=== PATIENT | female | born 1995 | race Caucasian/White ===

== ENCOUNTER → 2016-12-03 | Outpatient (CLI) | payer OTHER, BC ==
[~2016-12-03] MED LIST: FMR25 PO; GLC/500 PO; HYDR-5688 PO; IBUP-1459 PO; MEDR5TAB PO; ONDA4TAB10 SL; PRENTAB26 PO
[2016-12-03 13:36] LABS: HEMATOCRIT 36.6 % (37-47)
== END | disposition home or self-care (01) ==
LOC: C.LAB1850 12:00
PROVIDERS: ATTEND Obstetrics & Gynecology
DX: O09.92 Supervision of high risk pregnancy, unspecified, second trimester (principal); Z3A.00 Weeks of gestation of pregnancy not specified

== ENCOUNTER → 2016-12-03 | Outpatient (CLI) | payer OTHER, BC ==
[2016-12-03 15:02] LABS: URINE APPEARANCE CLEAR (CLEAR); URINE BILIRUBIN NEG (NEG); URINE COLOR YELLOW; URINE NITRITE NEG (NEG); URINE PH 7.5 (4.5-7.5); URINE SPECIFIC GRAVITY 1.006 (1.000-1.030); UROBILINOGEN NEG (NEG)
[2016-12-03 15:08] LABS: MANUAL MICROSCOPIC REQUIRED? NO; REVIEW REQ? NO
== END | disposition home or self-care (01) ==
LOC: C.LABSPEC 13:39
PROVIDERS: ATTEND Obstetrics & Gynecology
DX: O09.92 Supervision of high risk pregnancy, unspecified, second trimester (principal); Z3A.00 Weeks of gestation of pregnancy not specified

== ENCOUNTER → 2016-12-18 | Outpatient (CLI) | payer OTHER, BC ==
[2016-12-18 16:52] LABS: PATIENT HEIGHT 165.1 cm
[2016-12-18 17:34] LABS: BASO % 0.1 %; BASO ABS # 0.01 K/uL (0-0.2); COMPLETE YES; EOS % 0.4 %; HEMATOCRIT 36.2 % (37-47); IG% 0.5 %; LYMPH % 17.2 %; LYMPH ABS # 1.72 K/uL (1.2-3.4); MEAN CELL VOLUME 91.2 fL (80-100); MEAN CORPUSCULAR HEMOGLOBIN 29.7 pg (25-34); MEAN CORPUSCULAR HGB CONC 32.6 g/dl (32-36); MEAN PLATELET VOLUME 10.5 fL (7.4-10.4); MONO % 7.3 %; NEUT % 74.5 %; PLATELET COUNT 200 K/uL (130-400); RED BLOOD COUNT 3.97 M/uL (4.2-5.4); WHITE BLOOD COUNT 9.98 K/uL (4.8-10.8)
[2016-12-18 17:57] LABS: URINE TOTAL PROTEIN 12.6 mg/dl (0-11.9)
[2016-12-18 17:59] LABS: ALKALINE PHOSPHATASE 131 U/L (45-117); ALT/SGPT 19 U/L (12-78); AST/SGOT 14 U/L (15-37)
[2016-12-18 18:41] LABS: CREATININE 0.5 mg/dl (0.6-1.2); URINE TOTAL PROTEIN CALC 333.9 mg/24 hr (0-149.1)
== END | disposition home or self-care (01) ==
LOC: C.LAB1850 16:39
PROVIDERS: ATTEND Obstetrics & Gynecology
DX: O30.043 Twin pregnancy, dichorionic/diamniotic, third trimester (principal); O24.410 Gestational diabetes mellitus in pregnancy, diet controlled; O09.93 Supervision of high risk pregnancy, unspecified, third trimester

== ENCOUNTER 2016-12-19 16:47 | Outpatient (CLI) | payer OTHER, BC ==
[~2016-12-19] VITALS: Ht 165.1 cm; Wt 121.0 kg
[~2016-12-19 16:47] MED LIST changes: -HYDR-5688 PO; -IBUP-1459 PO; -ONDA4TAB10 SL; -PRENTAB26 PO
[2016-12-19 18:46] VITALS: Ht 165.1 cm; Wt 121.0 kg
[2016-12-19] MEDS ORDERED: PRENTAB26 PO (18:48)
[2016-12-19] MEDS ORDERED: LACTATED RINGER'S 1000ML 1,000 ML IV SCH (19:43)
[2016-12-19] MEDS ORDERED: MAGNESIUM SULFATE / WTR 1,000 ML IV ONE (19:43)
[2016-12-19] MEDS ORDERED: HydrALAZINE HCL 20 MG/ML VIAL IV. PRN (19:45)
[2016-12-19] MEDS ORDERED: BETAMETH SOD PHOS/ACETATE IA 6 MG/ML IM STA (19:57)
[2016-12-19] MEDS ORDERED: BETAMETH SOD PHOS/ACETATE IA 6 MG/ML ONE (20:00)
[2016-12-19] MEDS ORDERED: DEXTROSE 5% IV ONE (20:00)
[2016-12-19] MEDS ORDERED: MAG SULFATE IV ONE (20:00)
[2016-12-19] MEDS ORDERED: MAGNESIUM SULFATE 40GM / WTR 1000 ML IV SCH (20:30)
--- NOTE | 2016-12-20 07:06 | HISTORY & PHYSICAL EXAMINATION ---
DATE OF ADMISSION: 12/19/2016 ADMISSION/TRANSFER NOTE REASON FOR ADMISSION: Twins with severe preeclampsia. HISTORY OF PRESENT ILLNESS: This is a 21-year-old G1, P0 with infertility related to di/di twin at 30 weeks and 2 days today. Kiah was sent from the office to labor and delivery where she is currently being evaluated. Her course of care has included a Gonal-F IUI complicated thus far by diet-controlled gestational diabetes. As of 2 days ago, the patient was noted to have an extraordinary weight gain of 17 pounds over the course of 2 weeks and blood pressure that had gone from previously normal to 144/90. Labs were sent at that time and she had a 24-hour urine protein of 333 mg. Serum labs were reassuring. At that time, the patient was asymptomatic. She was asked to return to the office in 2 days for blood pressure followup. As of that time, which was earlier today, her blood pressures were 162/100. The patient was sent to labor and delivery for evaluation. Her nonstress test is reassuring on both babies and the patient remains asymptomatic with 1+ deep tendon reflexes, however, her pressures here have been persistently in the severe range of 160/110-180/110. Additionally, on review of the patient's records, I note that the estimated weights in October were in the 40 and 50th percentiles and this month are in the 12-18% range. While still normal, this represents a significant drop from her previous size. ALLERGIES: CARDIZEM, TRIMOX AND CECLOR. MEDICATIONS: vitamins, Zofran as needed. PAST MEDICAL HISTORY: Depression and anxiety, infertility and varicella. PAST SURGICAL HISTORY: Tonsillectomy and right foot surgery. SOCIAL HISTORY: Previous smoker who quit with . She is a female. OBSTETRIC HISTORY: She is a primigravida. PHYSICAL EXAMINATION: VITAL SIGNS: Currently 180/110, pulse in the 80s. The patient has heart tones that are category 1 on each baby and her toco was quiet. CERVICAL AND VAGINAL EXAM: Deferred at this time as the patient has no signs or symptoms of labor. GENERAL: She is alert and in no acute distress; however, she is noted to have significant edema that does affect the face and upper extremities as well as the lower extremities. HEART: Shows regular rate and rhythm. LUNGS: Clear to auscultation bilaterally. ABDOMEN: Gravid, nontender, somewhat obese. EXTREMITIES: Show pitting edema to above the knee but deep tendon reflexes are only 1+ bilaterally. ASSESSMENT AND PLAN: This is a 21-year-old G1, P0 with a dichorionic-diamniotic twin at 30 weeks and 2 days, complicated by diet-controlled gestational diabetes and now severe preeclampsia. Although the patient's blood pressures in the severe range have not occurred 6 hours apart fully yet, it is evident to me that as they are this high while she is resting, she will undoubtedly reach the severe hypertension jeannine with 2 blood pressures 6 hours apart in the next 1-2 hours. I have discussed the patient's case with Dr. Garcia at [facility] as well as the weigher bulker at [facility] via phone consultation. He accepted the patient in transfer at this time and the NICU has available bed, should they be needed for delivery. The patient will be given her first dose of betamethasone here. She will be started on IV magnesium with a 6 g load for neuroprotection, followed by 2 g/hour maintenance. At this time I have not yet given any IV antihypertensive because the patient is vacillating between the 180s-160s, is asymptomatic and I do not want to excessively lower her blood pressure, particularly right before transport as she is currently feeling well. We are planning air transport for this patient and [facility] will be here to pick her up shortly. LEATHA
== END 2016-12-19 20:50 | disposition short-term general hospital (02) ==
LOC: C.LD 16:47 → C.OPB 16:47
PROVIDERS: ATTEND Obstetrics & Gynecology
DX: O14.13 Severe pre-eclampsia, third trimester (principal); O30.043 Twin pregnancy, dichorionic/diamniotic, third trimester; O09.03 Supervision of pregnancy with history of infertility, third trimester; O24.410 Gestational diabetes mellitus in pregnancy, diet controlled; Z3A.30 30 weeks gestation of pregnancy; Z87.891 Personal history of nicotine dependence

== ENCOUNTER → 2016-12-19 | Outpatient (CLI) | payer OTHER, BC ==
[2016-12-19 11:28] LABS: BASO % 0.1 %; BASO ABS # 0.01 K/uL (0-0.2); EOS % 0.4 %; HEMATOCRIT 35.6 % (37-47); IG% 0.4 %; LYMPH % 14.6 %; MEAN CELL VOLUME 91.5 fL (80-100); MEAN CORPUSCULAR HEMOGLOBIN 30.6 pg (25-34); MEAN PLATELET VOLUME 10.2 fL (7.4-10.4); MONO % 4.6 %; NEUT % 79.9 %; PLATELET COUNT 164 K/uL (130-400); RED BLOOD COUNT 3.89 M/uL (4.2-5.4); WHITE BLOOD COUNT 9.59 K/uL (4.8-10.8)
[2016-12-19 11:52] LABS: ALKALINE PHOSPHATASE 128 U/L (45-117); ALT/SGPT 18 U/L (12-78); AST/SGOT 14 U/L (15-37)
[2016-12-19 12:06] LABS: COMPLETE YES; MEAN CORPUSCULAR HGB CONC 33.4 g/dl (32-36)
== END | disposition home or self-care (01) ==
LOC: C.LAB1850 11:06
PROVIDERS: ATTEND Obstetrics & Gynecology
DX: O09.92 Supervision of high risk pregnancy, unspecified, second trimester (principal); Z3A.00 Weeks of gestation of pregnancy not specified

== ENCOUNTER → 2017-02-27 | Outpatient (CLI) | payer OTHER, BC ==
[~2017-02-27] MED LIST changes: -FMR25 PO; -GLC/500 PO; +HYDR-5688 PO; +IBUP-1459 PO; -MEDR5TAB PO; +ONDA4TAB10 SL; +PRENTAB26 PO
[2017-02-27 12:04] LABS: BASO % 0.3 %; BASO ABS # 0.02 K/uL (0-0.2); COMPLETE YES; EOS % 1.9 %; HEMATOCRIT 40.3 % (37-47); IG% 0.3 %; LYMPH % 34.6 %; LYMPH ABS # 2.34 K/uL (1.2-3.4); MEAN CELL VOLUME 87.6 fL (80-100); MEAN CORPUSCULAR HGB CONC 34.2 g/dl (32-36); MEAN PLATELET VOLUME 9.9 fL (7.4-10.4); MONO % 7.1 %; NEUT % 55.8 %; PLATELET COUNT 238 K/uL (130-400); WHITE BLOOD COUNT 6.77 K/uL (4.8-10.8)
[2017-02-27 12:32] LABS: BLOOD UREA NITROGEN 11 mg/dl (7-18); BUN/CREATININE RATIO 15.1 (10-20); CALCIUM 9.5 mg/dl (8.5-10.1); CARBON DIOXIDE 27 mmol/L (21-32); CHLORIDE 108 mmol/L (98-107); CREATININE 0.72 mg/dl (0.60-1.20); GLUCOSE 74 mg/dl (70-99); POTASSIUM 4.2 mmol/L (3.5-5.1); SODIUM 141 mmol/L (136-145)
[2017-02-27 12:35] LABS: ALB/GLOB RATIO 1.1 (0.9-2); ALKALINE PHOSPHATASE 96 U/L (45-117); ALT/SGPT 31 U/L (12-78); AST/SGOT 12 U/L (15-37)
== END | disposition home or self-care (01) ==
LOC: C.LAB1850 10:51
PROVIDERS: ATTEND Obstetrics & Gynecology
DX: O14.93 Unspecified pre-eclampsia, third trimester (principal); R10.13 Epigastric pain

== ENCOUNTER → 2017-02-28 | Outpatient (CLI) | payer OTHER, BC ==
--- NOTE | 2017-02-28 09:02 | DIAGNOSTIC IMAGING REPORT ---
GALLBLADDER-ABD LIMITED HISTORY:22 [id number] Abdominal pain, [id number] COMPARISON: CT abdomen and pelvis 05/08/2015. TECHNIQUE: Multiple real-time sonographic images of the abdominal right upper quadrant were obtained assessing grayscale appearance and color flow. FINDINGS: The imaged pancreas appears normal. The liver is within normal limits without focal mass identified. There are multiple mobile shadowing gallstones within the gallbladder lumen. No gallbladder wall thickening or pericholecystic fluid collections identified. No reported sonographic Bridges sign. Image right kidney appears normal. No biliary ductal dilatation. IMPRESSION: 1. Cholelithiasis without sonographic evidence of acute cholecystitis. 2. No biliary ductal dilatation. The above report was generated using voice recognition software. It may contain grammatical, syntax or spelling errors. Electronically signed by: Shakeel Thorne 02/28/2017 9:00 AM Dictated Date/Time: 02/28/2017 8:58 AM
== END | disposition home or self-care (01) ==
LOC: C.ULTR 08:27
PROVIDERS: ATTEND Obstetrics & Gynecology
DX: R10.13 Epigastric pain (principal)

== ENCOUNTER → 2017-03-11 | Outpatient (CLI) | payer OTHER, BC ==
[2017-03-11 10:48] LABS: PREG INTERNAL NEGATIVE QC NEG CLEAR BACKGROUND; PREG INTERNAL POSITIVE QC POS CONTROL LINE
== END | disposition home or self-care (01) ==
LOC: C.LAB 09:52
PROVIDERS: ATTEND Obstetrics & Gynecology
DX: Z30.9 Encounter for contraceptive management, unspecified (principal)

== ENCOUNTER 2017-03-14 14:15 | Emergency (ER) | payer OTHER, BC ==
[~2017-03-14] VITALS: Ht 175.3 cm; Wt 105.7 kg
[~2017-03-14 14:15] MED LIST changes: -HYDR-5688 PO; -IBUP-1459 PO; -ONDA4TAB10 SL
[2017-03-14 14:17] VITALS: TEMP 36.9; Ht 175.3 cm; Wt 105.7 kg
[2017-03-14 15:04] LABS: BASO % 0.3 %; BASO ABS # 0.03 K/uL (0-0.2); COMPLETE YES; EOS % 1.6 %; HEMATOCRIT 42.5 % (37-47); IG% 0.3 %; LYMPH % 24.5 %; LYMPH ABS # 2.19 K/uL (1.2-3.4); MEAN CELL VOLUME 87.4 fL (80-100); MEAN CORPUSCULAR HEMOGLOBIN 29.8 pg (25-34); MEAN CORPUSCULAR HGB CONC 34.1 g/dl (32-36); MONO % 6.4 %; NEUT % 66.9 %; PLATELET COUNT 262 K/uL (130-400); RED BLOOD COUNT 4.86 M/uL (4.2-5.4); WHITE BLOOD COUNT 8.93 K/uL (4.8-10.8)
[2017-03-14 15:20] LABS: BUN/CREATININE RATIO 18.1 (10-20); CALCIUM 9.2 mg/dl (8.5-10.1); CREATININE 0.81 mg/dl (0.60-1.20); POTASSIUM 3.8 mmol/L (3.5-5.1)
[2017-03-14 15:23] LABS: ALB/GLOB RATIO 1.1 (0.9-2)
--- NOTE | 2017-03-14 15:33 | DIAGNOSTIC IMAGING REPORT ---
GALLBLADDER-ABD LIMITED CLINICAL HISTORY: RUQ pain - h/o gallstones pain TECHNIQUE: Ultrasound COMPARISON STUDY: 02/28/2017 FINDINGS: Multiple gallstones within the gallbladder lumen., Wall 2 mm. No pericholecystic fluid. Common bile duct 3 mm. Liver is uniform throughout. Pancreas and right kidney are unremarkable. IMPRESSION: Gallstones. No ultrasonic evidence for acute cholecystitis. No change from the prior study. The above report was generated using voice recognition software. It may contain grammatical, syntax or spelling errors. Electronically signed by: Virgil Torres M.D. 03/14/2017 3:32 PM Dictated Date/Time: 03/14/2017 3:31 PM
[2017-03-14 16:10] VITALS: BP 140/88; PULSE 74; O2SAT 99
--- NOTE | 2017-03-14 20:15 | EMERGENCY ROOM VISIT NOTE ---
History First contact with patient: 14:42 Chief Complaint: ABDOMINAL PAIN Stated Complaint: GALL BLADDER PAIN Nursing Triage Summary: Gallstones. RUQ pain. History of Present Illness The patient is a 22 year old female who presents to the Emergency Room with complaints of right upper quadrant pain that has been rather constant in character. The patient reports that she was diagnosed with gallstones, 2 months after a normal vaginal delivery. Her MACHINE SHOP WORKER ordered a gallbladder ultrasound that showed no evidence for cholecystitis. She was instructed to follow-up with a surgeon to discuss further management, and has an appointment on 03/25/17. The patient has not noticed any specific foods that will cause this discomfort. She has had nausea without vomiting. She denies any left sided abdominal pain, lower abdominal pain or back pain. The patient also reports that the pain does not radiate into the chest, shoulder or neck. At the time of my exam, the patient rated her pain discomfort a 2 out of 10, reporting significant relief since arriving at the hospital. She has not noticed any worsening discomfort with food intake. The patient does have a strong family history of gallbladder disease. Review of Systems HEENT: Denies dizziness, visual problems, hearing loss, tinnitus. Denies difficulty swallowing or oral lesions. PULMONARY: Denies cough, shortness of breath, sputum production or hemoptysis. CARDIOVASCULAR: Denies chest pain, palpitations, dyspnea on exertion, orthopnea or peripheral edema. GASTROINTESTINAL: Denies diarrhea, constipation or vomiting, otherwise see history of present illness. GENITOURINARY: Denies dysuria, frequency, urgency or nocturia. NEUROLOGIC: Denies history of epilepsy, CVA, TIA or chronic headaches. MUSCULOSKELETAL: Denies history of joint tenderness/swelling. SKIN: Denies rashes or lesions. PSYCHIATRIC: Denies history of depression or mental illness. ENDOCRINE: Denies history of diabetes or thyroid disorders. Past Medical/Surgical History Medical Problems: (1) Ankle sprain (2) Depression (3) PCOS (polycystic ovarian syndrome) (4) Right foot injury Surgical Problems: (1) S/P tonsillectomy Family History Cancer Diabetes mellitus Gallbladder disease Hypertension Social History Smoking Status: Former Smoker Alcohol Use: occasionally Marital Status: Housing Status: lives with significant other Occupation Status: unemployed Current/Historical Medications No Active Prescriptions or Reported Meds Physical Exam Vital Signs Date Time Temp Pulse Resp B/P (MAP) Pulse Ox O2 Delivery O2 Flow Rate FiO2 7/20/17 16:10 74 16 140/88 99 Room Air 03/14/17 14:17 36.9 87 16 146/100 100 Room Air Physical Exam CONSTITUTIONAL: Healthy and well nourished. Alert and oriented X 3 with positive affect. Patient does not appear in any acute distress on my exam, and in fact reports minimal pain. HEENT: Normocephalic, atraumatic. Pupils equal, round and reactive. Nose clear icterus or conjunctival injection/pallor. NECK: Full active range of motion without discomfort. RESPIRATORY: Clear to auscultation bilaterally with no wheezing, crackles, rhonchi or stridor. CARDIOVASCULAR: Regular rate and rhythm with no murmurs, rubs or gallops. GASTROINTESTINAL: Bowel sounds present in all quadrants. Patient has minimal right upper quadrant tenderness to palpation with negative Bridges sign. No rigidity, guarding or rebound. Negative CVA tenderness. MUSCULOSKELETAL: Full range of motion of all joints without discomfort. INTEGUMENTARY: No rash or other significant dermatologic conditions noted. HEMATOLOGIC: No ecchymosis or petechiae noted. NEUROLOGIC: No focal neurologic deficits noted. Medical Decision & Procedures ER Provider Diagnostic Interpretation: Gallbladder ultrasound shows evidence for multiple gallstones without wall thickening, pericholecystic fluid or common bile duct dilation. Radiologist report is as follows: GALLBLADDER-ABD LIMITED CLINICAL HISTORY: RUQ pain - h/o gallstones pain TECHNIQUE: Ultrasound COMPARISON STUDY: 02/28/2017 FINDINGS: Multiple gallstones within the gallbladder lumen., Wall 2 mm. No pericholecystic fluid. Common bile duct 3 mm. Liver is uniform throughout. Pancreas and right kidney are unremarkable. IMPRESSION: Gallstones. No ultrasonic evidence for acute cholecystitis. No change from the prior study. Laboratory Results 03/14/17 14:45 Red Blood Count 4.86, Mean Corpuscular Volume 87.4, Mean Corpuscular Hemoglobin 29.8, Mean Corpuscular Hemoglobin Concent 34.1, Mean Platelet Volume 10.0, Neutrophils (%) (Auto) 66.9, Lymphocytes (%) (Auto) 24.5, Monocytes (%) (Auto) 6.4, Eosinophils (%) (Auto) 1.6, Basophils (%) (Auto) 0.3, Neutrophils # (Auto) 5.97, Lymphocytes # (Auto) 2.19, Monocytes # (Auto) 0.57, Eosinophils # (Auto) 0.14, Basophils # (Auto) 0.03 03/14/17 14:45 Test 03/14/17 14:45 White Blood Count 8.93 K/uL (4.8-10.8) Red Blood Count 4.86 M/uL (4.2-5.4) Hemoglobin 14.5 g/dL (12.0-16.0) Hematocrit 42.5 % (37-47) Mean Corpuscular Volume 87.4 fL (80-100) Mean Corpuscular Hemoglobin 29.8 pg (25-34) Mean Corpuscular Hemoglobin Concent 34.1 g/dl (32-36) Platelet Count 262 K/uL (130-400) Mean Platelet Volume 10.0 fL (7.4-10.4) Neutrophils (%) (Auto) 66.9 % Lymphocytes (%) (Auto) 24.5 % Monocytes (%) (Auto) 6.4 % Eosinophils (%) (Auto) 1.6 % Basophils (%) (Auto) 0.3 % Neutrophils # (Auto) 5.97 K/uL (1.4-6.5) Lymphocytes # (Auto) 2.19 K/uL (1.2-3.4) Monocytes # (Auto) 0.57 K/uL (0.11-0.59) Eosinophils # (Auto) 0.14 K/uL (0-0.5) Basophils # (Auto) 0.03 K/uL (0-0.2) RDW Standard Deviation 42.2 fL (36.4-46.3) RDW Coefficient of Variation 13.3 % (11.5-14.5) Immature Granulocyte % (Auto) 0.3 % Immature Granulocyte # (Auto) 0.03 K/uL (0.00-0.02) Anion Gap 6.0 mmol/L (3-11) Est Creatinine Clear Calc Drug Dose 139.9 ml/min Estimated GFR () 118.6 Estimated GFR (Non- 102.4 BUN/Creatinine Ratio 18.1 (10-20) Calcium Level 9.2 mg/dl (8.5-10.1) Total Bilirubin 0.4 mg/dl (0.2-1) Aspartate Amino Transf (AST/SGOT) 21 U/L (15-37) Alanine Aminotransferase (ALT/SGPT) 39 U/L (12-78) Alkaline Phosphatase 93 U/L (45-117) Total Protein 7.3 gm/dl (6.4-8.2) Albumin 3.8 gm/dl (3.4-5.0) Globulin 3.5 gm/dl (2.5-4.0) Albumin/Globulin Ratio 1.1 (0.9-2) Lipase 121 U/L (73-393) The above labs were reviewed and were grossly normal. ED Course Patient history and physical exam were performed. Nurse's notes were reviewed. Initial triage blood pressure was 146/100. The patient was afebrile, and did not appear in any acute distress. I also reviewed the patient's most recent ultrasound study, showing gallstones. Because of her recurrent symptoms, I did suggest rechecking labs and repeating the ultrasound, and the patient was in agreement. IV access was established, and labs were drawn. The patient refused any analgesics or antiemetics. The patient was hydrated with a liter normal saline. Labs were reviewed and were normal. Gallbladder ultrasound again shows gallstones without evidence for gallbladder wall thickening, common bile duct dilation or pericholecystic fluid. On final reassessment, the patient denied any pain. She was instructed to keep her 0.0 with her surgeon for further reevaluation and management. She is welcome to return to the emergency department for Michael worsening pain, vomiting or fever. She was instructed to avoid fatty foods, high-protein or spicy foods. The patient was happy with plan of care, and voiced understanding of all discharge instructions. Repeat blood pressure prior to discharge was normal. Medical Decision The patient has ultrasound studies showing evidence for gallstones. Her gallbladder ultrasound and laboratory studies are not suggestive of acute cholecystitis. Laboratory studies also are not suggestive of pancreatitis. I do not suspect bowel obstruction, diverticulitis, hepatitis, peritonitis or referred pain. Blood Pressure Screening Blood pressure disposition: Elevated BP felt to be situational, Did not require urgent referral Impression Primary Impression: Biliary colic Additional Impression: Gallstones Departure Information Prescriptions No Active Prescriptions or Reported Meds Referrals No Doctor, Assigned (PCP) Patient Instructions My [facility] Problem Qualifiers
== END 2017-03-14 16:30 | disposition home or self-care (01) ==
LOC: C.EDB 14:19 → C.EDA 16:30
DX: K80.70 Calculus of gallbladder and bile duct without cholecystitis without obstruction (principal); E28.2 Polycystic ovarian syndrome; Z87.828 Personal history of other (healed) physical injury and trauma; Z87.891 Personal history of nicotine dependence; Z90.89 Acquired absence of other organs; Z98.890 Other specified postprocedural states; Z83.3 Family history of diabetes mellitus; Z82.49 Family history of ischemic heart disease and other diseases of the circulatory system

== ENCOUNTER 2017-03-28 13:33 | Emergency (ER) | payer OTHER, BC ==
[~2017-03-28] VITALS: Ht 165.1 cm; Wt 104.4 kg
[2017-03-28 13:44] VITALS: TEMP 36.6; Ht 165.1 cm; Wt 104.4 kg
[2017-03-28] MEDS ORDERED: SODIUM CHLORIDE 0.9% 1000ML 1,000 ML IV STA (13:58)
[2017-03-28] MEDS ORDERED: ONDANSETRON INJ 2 MG/ML 2 ML VIAL IV STA (13:58)
[2017-03-28] MEDS ORDERED: MoRPHine SULFATE 4 MG/ML 1 ML CARP\\VIAL IV STA (13:58)
[2017-03-28 14:17] LABS: BASO % 0.4 %; BASO ABS # 0.02 K/uL (0-0.2); COMPLETE YES; EOS % 2.5 %; HEMATOCRIT 41.4 % (37-47); IG% 0.2 %; LYMPH % 29.8 %; LYMPH ABS # 1.69 K/uL (1.2-3.4); MEAN CELL VOLUME 86.6 fL (80-100); MEAN CORPUSCULAR HEMOGLOBIN 29.9 pg (25-34); MEAN CORPUSCULAR HGB CONC 34.5 g/dl (32-36); MEAN PLATELET VOLUME 9.7 fL (7.4-10.4); MONO % 10.8 %; NEUT % 56.3 %; PLATELET COUNT 239 K/uL (130-400); RED BLOOD COUNT 4.78 M/uL (4.2-5.4); WHITE BLOOD COUNT 5.67 K/uL (4.8-10.8)
[2017-03-28] MEDS ORDERED: IBUP-1459 PO (14:23)
[2017-03-28 14:28] LABS: PREG INTERNAL NEGATIVE QC NEG CLEAR BACKGROUND; PREG INTERNAL POSITIVE QC POS CONTROL LINE
[2017-03-28 14:33] LABS: BUN/CREATININE RATIO 15.5 (10-20); CREATININE 0.75 mg/dl (0.60-1.20); POTASSIUM 3.6 mmol/L (3.5-5.1)
[2017-03-28 14:45] LABS: URINE APPEARANCE CLEAR (CLEAR); URINE BILIRUBIN NEG (NEG); URINE COLOR YELLOW; URINE EPITHELIAL CELL AUTO >30 /lpf (0-5); URINE NITRITE NEG (NEG); URINE SPECIFIC GRAVITY 1.016 (1.000-1.030); UROBILINOGEN NEG (NEG); ZZUR CULT IF INDIC CLEAN CATCH NO
[2017-03-28 14:47] LABS: MANUAL MICROSCOPIC REQUIRED? NO; REVIEW REQ? NO
--- NOTE | 2017-03-28 15:12 | DIAGNOSTIC IMAGING REPORT ---
GALLBLADDER-ABD LIMITED CLINICAL HISTORY: 22 years-old Female presenting with ABDOMINAL PAIN/GI. TECHNIQUE: Real-time grayscale and limited color Doppler ultrasound imaging of the abdomen limited to the right upper quadrant was performed. COMPARISON: 03/14/2017. FINDINGS: Pancreas: Visualized portions of the pancreatic head and body normal. Liver: Mildly hyperechogenic parenchyma, although the right hemidiaphragm remains visible, likely indicating mild steatosis. The liver measures 16.9 cm in maximal sagittal dimension. No sonographic evidence of hepatic mass. Main portal vein patent with normal directional flow. Biliary: No intrahepatic biliary ductal dilatation. Common bile duct measures up to 6 mm in diameter. Gallbladder: Few small gallstones noted near the gallbladder neck. No gallbladder wall thickening, mucosal irregularity, or pericholecystic fluid or inflammatory change to suggest cholecystitis. Right kidney: Normal in appearance and size. No hydronephrosis. Ascites: None. IMPRESSION: 1. Cholelithiasis without evidence of cholecystitis. 2. Suggestion of mild hepatic steatosis. Electronically signed by: Jayson Bolden M.D. 03/28/2017 3:11 PM Dictated Date/Time: 03/28/2017 3:09 PM
--- NOTE | 2017-03-28 15:21 | EMERGENCY ROOM VISIT NOTE ---
History First contact with patient: 13:48 Chief Complaint: ABDOMINAL PAIN Stated Complaint: GALL BLADDER PAIN, FEVER Nursing Triage Summary: abdominal pain since last week, found gall stones on last er visit, pain increasingly worse. History of Present Illness The patient is a 22 year old female who presents to the Emergency Room with complaints of right upper quadrant and epigastric pain for the past 3 days. She states the pain has been constant, squeezing and stabbing in nature, worse after eating, 04/04. She has had associated nausea with poor appetite, diarrhea , and fevers up to 101 with some night sweats. She has not taken any Tylenol or ibuprofen today, and states she has not taken any medications for the pain. She was evaluated for similar pain 2 weeks ago in the ER, found to have gallstones and set up with follow up with general surgery. Patient states she has seen Dr. Mcgee 2 days ago regarding this pain, she is scheduled to have cholecystectomy on 04/11. She states she was told that if her pain got too severe, she should go to the ER. She states she is concerned because her pain has been constant and she is now having fevers, when before she was only having intermittent flares of pain. She denies any chest pain, shortness of breath, dizziness or passing out, vomiting, blood in stools, dysuria or urinary frequency. Review of Systems A complete 10 point review of systems was reviewed with the patient with pertinent positives and negatives as per history of present illness. All else were negative. Past Medical/Surgical History Medical Problems: (1) Ankle sprain (2) Depression (3) PCOS (polycystic ovarian syndrome) (4) Right foot injury Surgical Problems: (1) S/P tonsillectomy Family History Cancer Diabetes mellitus Gallbladder disease Hypertension Social History Smoking Status: Former Smoker Alcohol Use: occasionally Marital Status: Housing Status: lives with significant other Occupation Status: unemployed Current/Historical Medications Scheduled Ondasetron Odt (Zofran Odt), 4 MG SL Q6H Scheduled PRN Hydrocodone/Acetaminophen 5MG/325MG ([place] 5MG/325MG), 1-2 TABLET PO Q6H PRN for Pain Ibuprofen (Motrin), 400 MG PO Q6H PRN for Pain Allergies Coded Allergies: Amoxicillin (Verified Allergy, Severe, rash, 03/28/17) Cefaclor (Verified Allergy, Severe, rash, 03/28/17) Physical Exam Vital Signs Date Time Temp Pulse Resp B/P (MAP) Pulse Ox O2 Delivery O2 Flow Rate FiO2 03/28/17 17:45 66 16 119/77 100 Room Air 03/28/17 16:49 77 133/86 100 Room Air 03/28/17 15:10 68 16 118/67 100 03/28/17 14:23 73 03/28/17 13:44 36.6 91 18 136/93 97 Room Air Physical Exam CONSTITUTIONAL: No acute distress. Well appearing and well nourished. Alert and oriented X 4 with normal affect. HEENT: Normocephalic, atraumatic. Pupils equal, round and reactive to light, EOMI. TMs normal. Pharynx normal. Moist mucous membranes. NECK: Supple, full active range of motion without discomfort. RESPIRATORY: Clear to auscultation bilaterally with no wheezing, crackles, rhonchi or stridor. Equal expansion bilaterally. CARDIOVASCULAR: Regular rate and rhythm with no murmurs, rubs or gallops. Normal peripheral perfusion. No edema. GASTROINTESTINAL: Moderate tenderness to palpation of the epigastric and right upper quadrant abdomen. Positive Bridges sign. No rebound tenderness. No CVA tenderness. Soft, nondistended. Bowel sounds present in all quadrants. MUSCULOSKELETAL: Full range of motion of all joints without discomfort. INTEGUMENTARY: No rash or other significant dermatologic conditions noted. NEUROLOGIC: Cranial nerves II-XII grossly intact. No focal neurologic deficits noted. Medical Decision & Procedures ER Provider Diagnostic Interpretation: GALLBLADDER-ABD LIMITED CLINICAL HISTORY: 22 years-old Female presenting with ABDOMINAL PAIN/GI. TECHNIQUE: Real-time grayscale and limited color Doppler ultrasound imaging of the abdomen limited to the right upper quadrant was performed. COMPARISON: 03/14/2017. FINDINGS: Pancreas: Visualized portions of the pancreatic head and body normal. Liver: Mildly hyperechogenic parenchyma, although the right hemidiaphragm remains visible, likely indicating mild steatosis. The liver measures 16.9 cm in maximal sagittal dimension. No sonographic evidence of hepatic mass. Main portal vein patent with normal directional flow. Biliary: No intrahepatic biliary ductal dilatation. Common bile duct measures up to 6 mm in diameter. Gallbladder: Few small gallstones noted near the gallbladder neck. No gallbladder wall thickening, mucosal irregularity, or pericholecystic fluid or inflammatory change to suggest cholecystitis. Right kidney: Normal in appearance and size. No hydronephrosis. Ascites: None. IMPRESSION: 1. Cholelithiasis without evidence of cholecystitis. 2. Suggestion of mild hepatic steatosis. Laboratory Results 03/28/17 14:10 Red Blood Count 4.78, Mean Corpuscular Volume 86.6, Mean Corpuscular Hemoglobin 29.9, Mean Corpuscular Hemoglobin Concent 34.5, Mean Platelet Volume 9.7, Neutrophils (%) (Auto) 56.3, Lymphocytes (%) (Auto) 29.8, Monocytes (%) (Auto) 10.8, Eosinophils (%) (Auto) 2.5, Basophils (%) (Auto) 0.4, Neutrophils # (Auto ) 3.20, Lymphocytes # (Auto) 1.69, Monocytes # (Auto) 0.61, Eosinophils # (Auto ) 0.14, Basophils # (Auto) 0.02 03/28/17 14:10 Test 03/28/17 14:10 White Blood Count 5.67 K/uL (4.8-10.8) Red Blood Count 4.78 M/uL (4.2-5.4) Hemoglobin 14.3 g/dL (12.0-16.0) Hematocrit 41.4 % (37-47) Mean Corpuscular Volume 86.6 fL (80-100) Mean Corpuscular Hemoglobin 29.9 pg (25-34) Mean Corpuscular Hemoglobin Concent 34.5 g/dl (32-36) Platelet Count 239 K/uL (130-400) Mean Platelet Volume 9.7 fL (7.4-10.4) Neutrophils (%) (Auto) 56.3 % Lymphocytes (%) (Auto) 29.8 % Monocytes (%) (Auto) 10.8 % Eosinophils (%) (Auto) 2.5 % Basophils (%) (Auto) 0.4 % Neutrophils # (Auto) 3.20 K/uL (1.4-6.5) Lymphocytes # (Auto) 1.69 K/uL (1.2-3.4) Monocytes # (Auto) 0.61 K/uL (0.11-0.59) Eosinophils # (Auto) 0.14 K/uL (0-0.5) Basophils # (Auto) 0.02 K/uL (0-0.2) RDW Standard Deviation 42.3 fL (36.4-46.3) RDW Coefficient of Variation 13.3 % (11.5-14.5) Immature Granulocyte % (Auto) 0.2 % Immature Granulocyte # (Auto) 0.01 K/uL (0.00-0.02) Urine Color YELLOW Urine Appearance CLEAR (CLEAR) Urine pH 6.0 (4.5-7.5) Urine Specific [place] 1.016 (1.000-1.030) Urine Protein NEG (NEG) Urine Glucose (UA) NEG (NEG) Urine Ketones NEG (NEG) Urine Occult Blood NEG (NEG) Urine Nitrite NEG (NEG) Urine Bilirubin NEG (NEG) Urine Urobilinogen NEG (NEG) Urine Leukocyte Esterase TRACE (NEG) Urine WBC (Auto) 1-5 /hpf (0-5) Urine RBC (Auto) 0-4 /hpf (0-4) Urine Hyaline Casts (Auto) 1-5 /lpf (0-5) Urine Epithelial Cells (Auto) >30 /lpf (0-5) Urine Bacteria (Auto) NEG (NEG) Urine Test NEG (NEG) Anion Gap 5.0 mmol/L (3-11) Est Creatinine Clear Calc Drug Dose 139.9 ml/min Estimated GFR () 130.2 Estimated GFR (Non- 112.4 BUN/Creatinine Ratio 15.5 (10-20) Calcium Level 9.0 mg/dl (8.5-10.1) Total Bilirubin 0.4 mg/dl (0.2-1) Direct Bilirubin 0.1 mg/dl (0-0.2) Aspartate Amino Transf (AST/SGOT) 20 U/L (15-37) Alanine Aminotransferase (ALT/SGPT) 35 U/L (12-78) Alkaline Phosphatase 83 U/L (45-117) Total Protein 7.2 gm/dl (6.4-8.2) Albumin 3.7 gm/dl (3.4-5.0) Lipase 119 U/L (73-393) Medications Administered Medications (Trade) Dose Ordered Sig/[place] Route Start Time Stop Time Status Last Admin Dose Admin Ondansetron HCl (Zofran Inj) 4 mg NOW STAT IV 03/28/17 13:58 03/28/17 14:01 DC 03/28/17 14:14 4 MG Sodium Chloride 1,000 ml @ 999 mls/hr Q1H1M STAT IV 03/28/17 13:58 03/28/17 14:58 DC 03/28/17 14:14 999 MLS/HR Morphine Sulfate (MoRPHine SULFATE INJ) 4 mg NOW STAT IV 03/28/17 13:58 03/28/17 14:01 DC 03/28/17 14:15 4 MG Ondansetron HCl (ZOFRAN ODT 4MG Home Pack) 1 homepack UD ONCE PO 03/28/17 17:45 03/28/17 17:46 DC 03/28/17 17:43 1 HOMEPACK Acetaminophen/ Hydrocodone Bitart ([place] 5/325mg Home Pack) 1 homepack UD ONCE PO 03/28/17 17:45 03/28/17 17:46 DC 03/28/17 17:43 1 HOMEPACK Medical Decision CC: Patient presenting with complaint of right upper quadrant pain and fevers Interpretation of Labs: No leukocytosis, no anemia, no significant electrolyte abnormalities, normal renal function, normal liver enzymes and lipase, no UTI. She is not . Differential Diagnosis: Includes, but not limited to cholecystitis, cholelithiasis, biliary colic, pancreatitis, UTI, pyelonephritis, among others. Medication Reconciliation: I attest that I have personally reviewed the patient' s current medication list. Vital signs review: I reviewed the patient's vital signs and interpret them as follows: T: Afebrile; BP: Normotensive; HR: Within normal limits; RR: Within normal limits; Pulse Ox: Within normal limits on room air. Blood pressure screening: The patient was found to have normal blood pressure on screening and does not require follow-up for repeat blood pressure check. Summary: Patient was evaluated at bedside, history of physical exam performed. Patient is alert and in no acute distress, resting calmly in the stretcher. Patient has moderate tenderness in the epigastric and right upper quadrant area with positive Bridges sign. Abdomen is otherwise benign. Patient is primarily concerned that her gallbladder issues are getting worse. She is also now reporting a history of fevers, although she is afebrile today without any antipyretics. Patient's chart was reviewed, noting a visit for similar symptoms on 03/14/17 at which time she had labs and an ultrasound done. Patient also notes that she is scheduled for a cholecystectomy on 04/[address] Mcgee. Orders were placed at bedside for labs, UA, right upper quadrant ultrasound to evaluate for worsening gallbladder disease. Patient was given IV morphine, Zofran, and IV fluids to manage her symptoms. Patient discussed with Dr. Tilley, who agrees with my assessment and plan. Labs reviewed as above, no significant abnormalities. Right upper quadrant ultrasound reviewed, appears unchanged when compared to previous study and no evidence of acute cholecystitis at this time. I discussed with Dr. Faust, General Surgery, who evaluated the patient and gave her the option of admission and possible surgery tomorrow vs. going home and following up in clinic tomorrow. Patient states she would like to go home and will call Dr. Mcgee's office in the morning. Patient was provided with prescriptions for Zofran and [place] to manage her symptoms in the interim until she can follow up with her surgeon. Patient reassessed multiple times throughout ED stay, she remained well- appearing with stable vital signs, states her pain is better controlled after medication today. Patient was updated on all results and instructed on follow-up plan, she verbalized understanding. Patient was also instructed on return precautions should her symptoms worsen, she verbalized understanding. Patient was discharged home in stable condition and ambulatory. Impression Primary Impression: Biliary colic Additional Impression: Gallstones Departure Information Dispostion Home / Self-Care Condition GOOD Prescriptions Hydrocodone/Acetaminophen 5MG/325MG ([place] 5MG/325MG) Tab 1-2 TABLET PO Q6H Y for Pain for 3 Days, #24 TAB For Initial Treatment Prov: Tabitha Chu CRNP 03/28/17 Ondasetron Odt (ZOFRAN ODT) 4 Mg Tab 4 MG SL Q6H for Nausea, #10 TAB Prov: Tabitha Chu CRNP 03/28/17 Referrals No Doctor, Assigned (PCP) Javad Mcgee D.O. Patient Instructions ED Gallstone W Biliary Colic, My [facility] Additional Instructions You have been treated in the Emergency Department your Abdominal Pain. You have been prescribed [place] to be used for pain control. This is a narcotic medication. You cannot drive or consume alcohol while on this medicine. This medicine should only be used for pain that cannot be controlled with over-the- counter pain medicines. You have been prescribed Zofran to be used for any nausea or vomiting. Take as prescribed. Drink plenty of water and stay well hydrated. Call Dr. Mcgee's office tomorrow morning to discuss scheduling of your surgery. Return to the emergency department if your symptoms persist despite treatment plan outlined above or if the following symptoms occur: increased fevers, chills , worsening nausea/vomiting, blood in your stool or urine, or any other concerns. Problem Qualifiers
[2017-03-28] MEDS ORDERED: ONDA4TAB10 SL (17:27)
[2017-03-28] MEDS ORDERED: HYDR-5688 PO (17:27)
--- NOTE | 2017-03-28 17:31 | Surgery Consultation ---
Consultation Date of Consultation: Mar 28, 2017. Attending Physician: Reason for Consultation: Cholelithiasis and abdominal pain History of Present Illness I've been asked by Tabitha Chu PA-C to see this 22-year-old female who presents with a complaint of pain mostly in the right subcostal region but also towards the left side and in the epigastrium. The patient has had episodes of this mostly since her in December of this year. The discomfort is sometimes related to food. It is mostly in the right upper quadrant radiates through to her back. She has had 2 evaluations with ultrasound that showed cholelithiasis. The most recent was today while in the emergency room. That showed cholelithiasis but there was no gallbladder wall thickening or pericholecystic fluid. The discomfort is associated with nausea although she has not vomited. She thinks that she has had fever. She has had some diarrhea but no melena or hematochezia. She was evaluated [address] Mcgee's office and she has been scheduled for cholecystectomy in the middle of the month. At present time the discomfort has decreased. She is no longer having nausea. Past Medical/Surgical History Medical Problems: (1) Depression Status: Chronic (2) Gallstones Status: Acute (3) Recurrent biliary colic Status: Acute PSH: 01/09 Foot surgery T&A Family History Cancer Diabetes mellitus Gallbladder disease Hypertension Social History Smoking Status: Former Smoker Smokeless Tobacco Use: No Alcohol Use: none Marital Status: Housing Status: lives with significant other Occupation Status: unemployed Allergies Coded Allergies: Amoxicillin (Verified Allergy, Severe, rash, 03/28/17) Cefaclor (Verified Allergy, Severe, rash, 03/28/17) Home Medications Scheduled PRN Ibuprofen (Motrin), 400 MG PO Q6H PRN for Pain Review of Systems Constitutional: + fever (intermittent) Abdomen: + problem reported (as per HPI) Genitourinary - Female: No dysuria, No urinary frequency Integumentary: No rash Physical Exam Date Time Temp Pulse Resp B/P (MAP) Pulse Ox O2 Delivery O2 Flow Rate FiO2 03/28/17 16:49 77 133/86 100 Room Air 03/28/17 15:10 68 16 118/67 100 03/28/17 14:23 73 03/28/17 13:44 36.6 91 18 136/93 97 Room Air General Appearance: no apparent distress, + obese Head: normocephalic Neck: supple Respiratory/Chest: chest non-tender, lungs clear Cardiovascular: regular rate, rhythm, no edema Abdomen/GI: normal bowel sounds, soft, + tenderness (mild right subcostal to deep palpation) Back: normal inspection Skin: normal color Laboratory Results Last 24 Hours Test 03/28/17 14:10 White Blood Count 5.67 K/uL Red Blood Count 4.78 M/uL Hemoglobin 14.3 g/dL Hematocrit 41.4 % Mean Corpuscular Volume 86.6 fL Mean Corpuscular Hemoglobin 29.9 pg Mean Corpuscular Hemoglobin Concent 34.5 g/dl Platelet Count 239 K/uL Mean Platelet Volume 9.7 fL Neutrophils (%) (Auto) 56.3 % Lymphocytes (%) (Auto) 29.8 % Monocytes (%) (Auto) 10.8 % Eosinophils (%) (Auto) 2.5 % Basophils (%) (Auto) 0.4 % Neutrophils # (Auto) 3.20 K/uL Lymphocytes # (Auto) 1.69 K/uL Monocytes # (Auto) 0.61 K/uL Eosinophils # (Auto) 0.14 K/uL Basophils # (Auto) 0.02 K/uL RDW Standard Deviation 42.3 fL RDW Coefficient of Variation 13.3 % Immature Granulocyte % (Auto) 0.2 % Immature Granulocyte # (Auto) 0.01 K/uL Urine Color YELLOW Urine Appearance CLEAR Urine pH 6.0 Urine Specific [place] 1.016 Urine Protein NEG Urine Glucose (UA) NEG Urine Ketones NEG Urine Occult Blood NEG Urine Nitrite NEG Urine Bilirubin NEG Urine Urobilinogen NEG Urine Leukocyte Esterase TRACE Urine WBC (Auto) 1-5 /hpf Urine RBC (Auto) 0-4 /hpf Urine Hyaline Casts (Auto) 1-5 /lpf Urine Epithelial Cells (Auto) >30 /lpf Urine Bacteria (Auto) NEG Urine Test NEG Sodium Level 140 mmol/L Potassium Level 3.6 mmol/L Chloride Level 109 mmol/L Carbon Dioxide Level 26 mmol/L Anion Gap 5.0 mmol/L Blood Urea Nitrogen 12 mg/dl Creatinine 0.75 mg/dl Est Creatinine Clear Calc Drug Dose 139.9 ml/min Estimated GFR () 130.2 Estimated GFR (Non- 112.4 BUN/Creatinine Ratio 15.5 Random Glucose 83 mg/dl Calcium Level 9.0 mg/dl Total Bilirubin 0.4 mg/dl Direct Bilirubin 0.1 mg/dl Aspartate Amino Transf (AST/SGOT) 20 U/L Alanine Aminotransferase (ALT/SGPT) 35 U/L Alkaline Phosphatase 83 U/L Total Protein 7.2 gm/dl Albumin 3.7 gm/dl Lipase 119 U/L Assessment & Plan This is a 22-year-old female with symptomatic cholelithiasis. She had an exacerbation earlier today but it is resolving. I discussed this with Dr. Mcgee. The options presented to her were admission tonight with cholecystectomy tomorrow versus calling Dr. Mcgee's office tomorrow at which time he will try to schedule her silver for her cholecystectomy. If she would choose the latter she can always return to the emergency room if the symptoms are exacerbated again. She has chosen to go home and call Dr. Mcgee's office. I recommended that she either bland low-fat diet until the surgery. She will also be given analgesics.
[2017-03-28 17:45] VITALS: BP 119/77; PULSE 66; O2SAT 100
[2017-03-28] MEDS ORDERED: NORCO 5/325MG HOME PACK PO ONE (17:45)
[2017-03-28] MEDS ORDERED: ONDANSETRON HOME PACK 4MG OD TAB PO ONE (17:45)
== END 2017-03-28 17:46 | disposition home or self-care (01) ==
LOC: C.EDB 13:36
DX: K80.20 Calculus of gallbladder without cholecystitis without obstruction (principal); K80.50 Calculus of bile duct without cholangitis or cholecystitis without obstruction; F32.9 Major depressive disorder, single episode, unspecified; E28.2 Polycystic ovarian syndrome; Z80.9 Family history of malignant neoplasm, unspecified; Z83.3 Family history of diabetes mellitus; Z83.79 Family history of other diseases of the digestive system; Z82.49 Family history of ischemic heart disease and other diseases of the circulatory system; Z87.891 Personal history of nicotine dependence

== ENCOUNTER 2017-04-01 07:10 | Day surgery (SDC) | payer OTHER, BC ==
[~2017-04-01] VITALS: Ht 165.1 cm; Wt 99.5 kg
[~2017-04-01 07:10] MED LIST changes: +CIPROFLOXACIN / D5W 400 MG IV SCH; +HYDR-5688 PO; +IBUP-1459 PO; +LACTATED RINGER'S 1000ML 1,000 ML IV SCH; +ONDA4TAB10 SL; -PRENTAB26 PO
[2017-04-01] MEDS ORDERED: LIDOCAINE HCL 2% 2 ML VIAL (20MG/ML) ONE (07:36)
[2017-04-01] MEDS ORDERED: ROCURONIUM BROMIDE 10 MG/ML 5 ML VIAL ONE (07:36)
[2017-04-01] MEDS ORDERED: DEXAMETHASONE SOD INJ 4 MG/ML VIAL ONE (07:36)
[2017-04-01] MEDS ORDERED: PROPOFOL IV EMULSION 10 MG/ML 20 ML VIAL IV ONE (07:36)
[2017-04-01] MEDS ORDERED: ONDANSETRON INJ 2 MG/ML 2 ML VIAL ONE (07:36)
[2017-04-01] MEDS ORDERED: MIDAZOLAM HCL 1 MG/ML 2ML VIAL ONE (07:37)
[2017-04-01] MEDS ORDERED: FENTANYL CITRATE INJ 50 MCG/1 ML 2 ML VIAL ONE ×2 (07:37→09:28)
[2017-04-01 07:40] VITALS: BP 128/82; PULSE 75; TEMP 37; O2SAT 97; Ht 165.1 cm; Wt 99.5 kg
[2017-04-01] MEDS ORDERED: KETOROLAC TROMETHAMINE 30 MG/ML VIAL IV. PRN (08:15)
[2017-04-01] MEDS ORDERED: LABETALOL HCL IV 5 MG/ML 20ML IV PRN (08:15)
[2017-04-01] MEDS ORDERED: ATROPINE SULFATE 0.1 MG/ML 5ML SYR IV PRN (08:15)
[2017-04-01] MEDS ORDERED: ONDANSETRON INJ 2 MG/ML 2 ML VIAL IV PRN ×2 (08:15→10:00)
--- NOTE | 2017-04-01 08:33 | History & Physical Bridge Note ---
H&P Re-Evaluation Bridge Note: I have examined the patient, reviewed the History & Physical and in the interval since the performance of the History & Physical I have noted the following changes of clinical significance: No changes noted
--- NOTE | 2017-04-01 08:39 | Discharge Instructions ---
Discharge Instructions Date of Service Apr 01, 2017. Admission Reason for Admission: Cholelithiasis Discharge Discharge Diagnosis / Problem: Cholelithiasis Discharge Goals Goal(s): Decrease discomfort, Improve function Activity Recommendations Activity Limitations: as noted below Lifting Limitations: no more than 10 pounds Exercise/Sports Limitations: until after follow-up appointment May Resume Sexual Activity: after follow-up appointment Shower/Bathe: tomorrow . Instructions / Follow-Up Instructions / Follow-Up Please follow-up with Dr. Mcgee in the office in 1-2 weeks. Please call the office at [phone] to make an appointment if you do not have one already. Please call the office at [phone] with any questions or concerns. Current Hospital Diet Patient's current hospital diet: Discharge Diet Recommended Diet: Regular Diet Pending Studies Studies pending at discharge: no Medical Emergencies . Who to Call and When: Medical Emergencies: If at any time you feel your situation is an emergency, please call 911 immediately. . Non-Emergent Contact Non-Emergency issues call your: Primary Care Provider, Surgeon Call Non-Emergent contact if: temperature is above 101.5, your pain is not controlled, wound has increased drainage, wound has increased redness . "Provider Documentation" section prepared by Kristina Quiroz. . VTE Core Measure Inpt VTE Proph given/why not?: SCD's [place] Drug Monitoring Program Search Results: patient reviewed within database, no issues identified
[2017-04-01] MEDS ORDERED: HYDR-5688 PO (08:40)
[2017-04-01] MEDS ORDERED: BUPIVACAINE/EPINEPHRINE 0.5% MPF 1:200,000 10 ML VIAL ONE (08:43)
[2017-04-01] MEDS ORDERED: NEOSTIGMINE METHYLSULFATE 5 MG/5 ML SYR ONE (09:22)
[2017-04-01] MEDS ORDERED: GLYCOPYRROLATE INJ 0.2 MG/ML VIAL ONE (09:22)
[2017-04-01] MEDS ORDERED: KETOROLAC TROMETHAMINE 30 MG/ML VIAL ONE (09:24)
--- NOTE | 2017-04-01 09:51 | [facility] Operative Report ---
Operative Report Operative Date Apr 01, 2017. Pre-Operative Diagnosis symptomatic Cholelithiasis Post-Operative Diagnosis Cholelithiasis Procedure(s) Performed Laparoscopic Cholecystectomy Surgeon Dr. Mcgee Operator Catalyst Concentration Surgeon(s) Kristina Quiroz PA-C Estimated Blood Loss 5cc Findings normal anatomy Specimens A. Gallbladder Anesthesia get Complication(s) None Disposition Recovery Room / PACU Description of Procedure After informed consent was obtained the patient was taken operative suite placed in supine position. After successful intubation the abdomen was sterilely prepped and draped in usual fashion. An infraumbilical incision was made with an 11 blade scalpel and carried down through the soft tissue using electrocautery. Anterior rectus fascia was opened using electrocautery and 2 # 0 Vicryl stay sutures were placed. Peritoneum was entered using blunt finger penetration and a finger sweep was performed. 12 mm Jain trocar was placed in the abdomen was insufflated 18 mmHg. The scope was inserted and examined IN 360. No gross abnormality was identified. We placed a subxiphoid 5 mm port and 2 right upper quadrant 5 mm ports under direct vision. The patient was placed in a reverse Trendelenburg position and slightly airplane to the left. The gallbladder was grasped and elevated superiorly and laterally. A [place] dissector was used to take down adhesions around the neck of the gallbladder. The cystic artery was rather anterior so we skeletonized it first. It was clipped twice proximally and once distally and transected. In similar fashion we were able to identify and skeletonize the cystic duct. It was clipped twice twice proximally and once distally and transected as well. We then used electrocautery to remove the gallbladder from the gallbladder fossa. It was removed intact and placed into an Endo Catch bag. Several small bleeding points on the gallbladder fossa were controlled using electrocautery. Thorough irrigation the right upper quadrant was performed. At the end of the procedure there was adequate hemostasis and no evidence of any bile leaks. The gallbladder was removed as well as the trochars and the abdomen was desufflated. The fascia of the camera port was closed using 0 Vicryl in a [id number] fashion. All the wounds were irrigated and closed using 4-0 Monocryl. Marcaine was injected around for postoperative analgesia and skin glue used as a dressing. The patient was awakened and transferred recovery in stable condition I attest to the content of the Intraoperative Record and any orders documented therein. Any exceptions are noted below.
[2017-04-01] MEDS ORDERED: SODIUM CHLORIDE 0.9% 1000ML 1,000 ML IV SCH (09:53)
[2017-04-01] MEDS ORDERED: HYDROCODONE/ACETAMOPHEN 5/325MG TAB PO PRN ×2 (10:00)
[2017-04-01] MEDS: FENTANYL CITRATE INJ 50 MCG/1 ML 2 ML VIAL IV PRN ×4 (10:06→10:25)
--- NOTE | 2017-04-01 10:46 | Anesthesiology Progress Note ---
Anesthesia Post Op Note Date & Time Apr 01, 2017 at 10:46 Vital Signs Pain Intensity: 4 Vital Signs Past 12 Hours Date Time Temp Pulse Resp B/P (MAP) Pulse Ox O2 Delivery O2 Flow Rate FiO2 04/01/17 10:40 36.2 58 15 104/63 95 Room Air 04/01/17 10:30 60 12 110/65 95 Room Air 04/01/17 10:20 61 13 114/75 97 Room Air 04/01/17 10:10 77 19 113/74 100 Oxymask 10 04/01/17 10:00 77 19 118/82 99 Oxymask 10 04/01/17 09:52 36.0 84 16 127/89 98 Oxymask 10 04/01/17 07:40 37 75 18 128/82 (97) 97 Room Air Notes Mental Status: alert / awake / arousable, participated in evaluation Pt Amnestic to Procedure: Yes Nausea / Vomiting: adequately controlled Pain: adequately controlled Airway Patency, RR, SpO2: stable & adequate BP & HR: stable & adequate Hydration State: stable & adequate Anesthetic Complications: no major complications apparent
[2017-04-01] MEDS ORDERED: HYDROCODONE/ACETAMOPHEN 5/325MG TAB ONE (11:07)
[2017-04-01 11:50] VITALS: BP 108/71; PULSE 64; TEMP 36.7; O2SAT 96
== END 2017-04-01 12:10 | disposition home or self-care (01) ==
LOC: C.OR 07:10
PROVIDERS: ATTEND Surgery
DX: K82.4 Cholesterolosis of gallbladder (principal); F32.9 Major depressive disorder, single episode, unspecified; Z86.32 Personal history of gestational diabetes; Z82.49 Family history of ischemic heart disease and other diseases of the circulatory system; Z80.0 Family history of malignant neoplasm of digestive organs; Z83.3 Family history of diabetes mellitus

== ENCOUNTER → 2017-08-02 | Outpatient (CLI) | payer OTHER ==
[~2017-08-02] MED LIST changes: -CIPROFLOXACIN / D5W 400 MG IV SCH; -HYDR-5688 PO; -LACTATED RINGER'S 1000ML 1,000 ML IV SCH
[2017-08-07 00:24] LABS: CHLAMYDIA TRACH RNA*** NOT DETECTED (NOT DETECTED); GC (NEIS GONORRHOEAE)RNA** NOT DETECTED (NOT DETECTED); TRICHOMONAS VAGINALIS RNA** NOT DETECTED (NOT DETECTED)
== END | disposition home or self-care (01) ==
LOC: C.LAB1850 15:44
PROVIDERS: ATTEND Obstetrics & Gynecology
DX: R10.2 Pelvic and perineal pain (principal); N91.1 Secondary amenorrhea